=== PATIENT | female | born 1945 | race Caucasian/White ===

== ENCOUNTER → 2021-03-17 | Outpatient (CLI) | payer MEDICARE ==
--- NOTE | 2021-03-17 11:02 | FL ---
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 Total images: 13. Findings: Redemonstrated asymmetric elevation right hemidiaphragm. There is symmetric directionality of movemen t during inspiration and expiration. Relatively symmetric excursion. With deep breathing, the right h emidiaphragm becomes slightly sluggish at end inspiration. There is no paradoxical movement with snif f maneuver. Impression: Asymmetric elevation right hemidiaphragm but without paradoxical motion to suggest hemidiaphragmatic paralysis.
== END | disposition home or self-care (01) ==
LOC: RADFLMAIN 09:23
PROVIDERS: ATTEND Internal Medicine Critical Care Medicine
DX: J98.6 Disorders of diaphragm (principal)
CPT/HCPCS: 76000